=== PATIENT | female | born 1985 | race Caucasian/White ===

== ENCOUNTER 2022-03-14 07:27 | Day surgery (SDC) | payer OTHER ==
[~2022-03-14] VITALS: Ht 152.4 cm; Wt 54.4 kg
[2022-03-14] MEDS ORDERED: diphenhydrAMINE 50 MG/ML VIAL ONE (08:39)
[2022-03-14] MEDS ORDERED: fentaNYL citrate 0.05 MG/ML VIAL ONE (08:40)
[2022-03-14] MEDS ORDERED: MIDAZOLAM 5 MG/5 ML VIAL ONE (08:40)
== END 2022-03-14 09:48 | disposition home or self-care (01) ==
LOC: MMU 07:27 → MOR 07:27
PROVIDERS: ATTEND Internal Medicine Gastroenterology
DX: R10.9 Unspecified abdominal pain (principal); Z20.822 Contact with and (suspected) exposure to COVID-19; Z53.8 Procedure and treatment not carried out for other reasons
CPT/HCPCS: 81025; 87426; J2250; J1200; J3010

== ENCOUNTER 2022-03-21 06:12 | Day surgery (SDC) | payer OTHER ==
[~2022-03-21] VITALS: Ht 152.4 cm; Wt 54.4 kg
[2022-03-21] MEDS ORDERED: diphenhydrAMINE 50 MG/ML VIAL ONE (07:52)
[2022-03-21] MEDS ORDERED: fentaNYL citrate 0.05 MG/ML VIAL ONE (07:52)
[2022-03-21] MEDS ORDERED: MIDAZOLAM 5 MG/5 ML VIAL ONE (07:53)
[2022-03-21] MEDS ORDERED: fentaNYL citrate 0.05 MG/ML VIAL IVP ONE (12:05)
[2022-03-21] MEDS ORDERED: MIDAZOLAM 2 MG/2 ML VIAL IVP ONE (12:05)
== END 2022-03-21 09:10 | disposition home or self-care (01) ==
LOC: MOR 06:12 → MMU 06:13 → MOR 09:10
PROVIDERS: ATTEND Internal Medicine Gastroenterology
DX: R10.32 Left lower quadrant pain (principal); K52.9 Noninfective gastroenteritis and colitis, unspecified; Z20.822 Contact with and (suspected) exposure to COVID-19; Z79.899 Other long term (current) drug therapy
CPT/HCPCS: 45380; 81025; 87426; 88305; J2250; J3010; J1200